=== PATIENT | female | born 1990 | race Caucasian/White ===

== ENCOUNTER 2017-01-07 13:02 | Emergency (ER) | payer OTHER ==
[~2017-01-07] VITALS: Ht 165.1 cm; Wt 59.1 kg
[~2017-01-07 13:02] MED LIST: Docusate Sodium PO; MOT800 PO; PNV1TABL57 PO
[2017-01-07 13:04] VITALS: BP 134/69; PULSE 117; RESP 16; O2SAT 98
--- NOTE | 2017-01-07 13:11 | ED.REPORT ---
HPI-Preg Under 20 Weeks Date of Service Jan 07, 2017 ED Provider: Shwetha Baum MD Patient is a 26 year old female who is 10 weeks with a history of two abortions who presents to the ED complaining vaginal bleeding onset 1115 today. Associated symptoms include lower abdominal cramping that has since resolved. She denies any urinary symptoms, pain or injury. The patient reports that she also experienced bleeding last week but it stopped. When she went to a clinic in [place], an ultrasound was performed and it was normal. The patient states that whenever she stands she can feel the blood "start to trickle" and there is big "gush" of blood when she urinates but she does not bleed when she is laying down. Nursing Notes Stated Complaint: VAGINAL BLEEDING/10 WKS Chief Complaint: & Delivery Nursing Notes Reviewed: Yes Allergies: Coded Allergies: latex (Verified Allergy, Unknown, RASH/HIVES, 01/07/17) Scheduled PNV CMB#95/FERROUS FUMARATE/FA-Expunged Drug, (-Expunged Drug, Do Not Renew!) 1 Each Tablet 1 EACH PO DAILY General Time Seen by Provider: 13:24 Chief Complaint Vaginal bleeding Hx Obtained From: Patient Arrived By: Walk-in Onset Occurred: 1 - 4 hours ago Location: : Abdomen lower Quality: Cramping Severity: Current: No pain currently Severity: Maximum: Mild Recent Healthcare: Recent doctor visit Similar Sx Previous: Yes Past Medical History Past Medical History two abortions Past Surgical History none reported Smoking History Unknown if Ever Smoker Social History Other Social History: Good social support Ambulatory Status Independent Review of Systems Constitutional: Denies: Chills, Fever Respiratory: Denies: Non-productive cough, Shortness of breath GI: Reports: Abdominal pain (since resolved), Denies: Vomiting Female: Reports: , Vaginal bleeding - abnl, Denies: Dysuria, Urinary frequency, Urinary urgency Skin: Denies Itching, Denies Rash Complete sys rev & neg: except as marked. Physical Exam Initial Vital Signs Vital Signs (First) Date Time Temp Pulse Resp B/P Pulse Ox O2 Delivery O2 Flow Rate FiO2 01/07/17 13:04 37.1 117 16 134/69 98 Room Air Initial VS: Reviewed, Vital signs abnormal General/Constitutional: Awake, Alert, No acute distress Abdomen: Atraumatic, Soft, Non-tender Female Genitourinary: Exam deferred : movement present Respiratory / Chest: Atraumatic, Breath sounds NL, Breath sounds = bilat, No respiratory distress Cardiovascular: Heart rate NL, Regular rhythm, Heart sounds NL Neurologic: Oriented X3, Speech NL, No motor deficits, No sensory deficits Head / Eyes: Atraumatic, Normocephalic, PERRL, EOMI Skin: Atraumatic, Color NL, No rash, Warm, Dry Psychiatric: Affect NL, Mood NL Interpretation & Diagnostics Interpretation & Diagnostics: Bedside US: positive movements and heart tones Lab Results Interpretation Result Diagram: 01/07/17 1350 01/07/17 1350 Test 01/07/17 13:50 01/07/17 14:35 White Blood Count 6.4th/mm3 (3.8-10.1) Red Blood Count 4.38mil/mm3 (3.90-5.20) Hemoglobin 13.3g/dL (12.0-15.6) Hematocrit 38.7% (35.0-46.0) Mean Corpuscular Volume 88.4fL (81-100) Mean Corpuscular Hemoglobin 30.4pg (27.0-35.0) Mean Corpuscular Hemoglobin Concent 34.4% (32.0-37.0) Red Cell Distribution Width 12.6% (12.3-15.4) Platelet Count 194bil/L (150-400) Neutrophils (%) (Auto) 79.4% (40-74) Lymphocytes (%) (Auto) 13.5% (14-46) Monocytes (%) (Auto) 5.7% (4-12) Eosinophils (%) (Auto) 0.9% (0-5) Basophils (%) (Auto) 0.3% (0-3) Sodium Level 134mEq/L (134-144) Potassium Level 3.5mEq/L (3.5-5.2) Chloride Level 101mEq/L (97-108) Carbon Dioxide Level 18mmol/L (18-29) Blood Urea Nitrogen 8mg/dL (6-20) Creatinine 0.51mg/dL (0.57-1.00) Estimat Glomerular Filtration Rate 207mL/min (>59) Glucose Level 123mg/dL (60-99) Calcium Level 9.1mg/dL (8.5-10.1) HCG Beta Subunit 14522uHI/mL Hold Urine Received (Received) Re-Eval/Medical Decision Med Decision/Clinical Course The patient presents with bleeding in her first trimester. She has an intrauterine . Bleeding has slowed at this point and there is nothing that can be done this early in . The patient was initially tachycardic but this improved and she is not significantly anemic. The patient' s blood type is O+ therefore no RhoGAM is needed. Re-Evaluation/Progress : Time of Eval: 14:39 Re-Evaluation/Progress Note: Discussed lab results and plan for discharge. Patient understands and agrees to plan. All questions were addressed. Counseled Regarding: Diagnosis, Lab results, Need for follow-up, When/why to return to ED Discharge & Departure Primary Impression: Threatened Disposition: Home Discharge Condition All VS Reviewed: Yes Condition: Stable Patient Instructions: Threatened Miscarriage (ED) Additional Instructions: Be sure to get plenty of rest. Do not lift any heavy things or engage in strenuous activity. Pelvic rest until you have your appointment with OB. Do not have intercourse. Don't put anything into the vagina, including tampons. Follow up with your OB for further evaluation and close treatment. Your blood type is O+ Return to the emergency department if you develop any new or concerning including bleeding through a pad an hour, feeling weak, dizzy or have difficulty breathing. Referrals: Cassidy Card MD (PCP) John Attestation Portions of this note were transcribed by Nadeen Bruce. I, Dr. Baum personally performed the history, physical exam and medical decision-making; I reviewed and confirmed the accuracy of the information in the transcribed note. Signed by: John Purdy, 01/07/17 copies to: Cassidy Card MD, Jena M MD Jan 07, 2017 13:11 Iesha Bruce Jan 07, 2017 13:31
[2017-01-07] MEDS ORDERED: 0.9% Sodium Chloride 1,000 ML IV ONE (13:15)
[2017-01-07 13:59] LABS: BASOPHILS % (AUTO) 0.3 % (0-3); EOSINOPHILS % (AUTO) 0.9 % (0-5); MONOCYTES % (AUTO) 5.7 % (4-12); Mean Corpuscular Hemoglobin 30.4 pg (27.0-35.0); Mean Corpuscular Volume 88.4 fL (81-100); NEUTROPHILS % (AUTO) 79.4 % (40-74); Platelet Count 194 bil/L (150-400)
[2017-01-07 15:14] VITALS: BP 98/58; PULSE 68; RESP 14; O2SAT 100
== END 2017-01-07 15:15 | disposition home or self-care (01) ==
LOC: SED 13:02
DX: O20.0 Threatened abortion (principal); Z3A.10 10 weeks gestation of pregnancy; Z91.040 Latex allergy status
CPT/HCPCS: 36415; 80048; 84702; 85025; 96360; 99284; J7030